=== PATIENT | male | born 1965 | race Caucasian/White ===

== ENCOUNTER 2021-07-29 16:24 | Emergency (ER) | payer MEDICARE ==
[2021-07-29 16:43] VITALS: TEMP 98.3
--- NOTE | 2021-07-29 17:37 | XR ---
EXAMINATION TYPE: XR ribs LT w pa chest xray DATE OF EXAM: 07/29/2021 COMPARISON: NONE HISTORY: Rib pain TECHNIQUE: 5 views FINDINGS: Heart and mediastinum are normal. Lungs are clear of infiltrate. There are multiple old rig ht-sided rib fractures. Left ribs appear intact. No pleural effusion or pneumothorax. IMPRESSION: Negative left rib exam. No fracture seen. No active cardiopulmonary disease.
[2021-07-29] MEDS ORDERED: diazePAM 2 MG TAB PO STA (17:58)
[2021-07-29] MEDS ORDERED: KETOROLAC 15 MG/ML 1 ML VIAL IM STA (17:59)
[2021-07-29] MEDS ORDERED: LIDOCAINE 5% PATCH TOPICAL STA (17:59)
--- NOTE | 2021-07-29 19:02 | ED ---
General Adult HPI - General Chief complaint: Fall Stated complaint: Lt Rib Pain/Fall Time Seen by Provider: 07/29/21 17:20 Source: patient, RN notes reviewed, old records reviewed Mode of arrival: wheelchair Limitations: no limitations - History of Present Illness Initial comments: Patient is a 55-year-old male with past medical history remarkable for h ypertension who presents emergency Department with concern for left-sided rib fracture. Was diagnosed on Sunday by his PCP with a left-sided rib fracture following a fall. Patient fell on Sunday, backwards landing on his left posterior mid ribs. Was seen at his PCPs office on Sunday and diagnosed with a possible rib fracture. However he was called today by the office, and radiology read it as no rib fracture. He presents today over concern for continued pain. Describes the pain as a tightening, cramping sensation located over the left paraspinal region. The uncertain what is causing it. Has been taking muscle relaxers with minimal improvement. Denies any anterior chest wall pain, abdominal pain, nausea, vomiting. No other injuries. No loss consciousness earlier this week. No other acute complaints at this time. Concern for possible bone injury or muscle injury. - Related Data Previous Rx's Medication Instructions Recorded HYDROcodone/APAP 5-325MG [Lincoln 1 tab PO Q6HR PRN 3 Days #12 tab 07/29/21 5-325] Lidocaine 5% Patch [Lidoderm 5% 1 patch TOPICAL DAILY PRN 7 Days 07/29/21 Patch] #7 patch Allergies Allergy/AdvReac Type Severity Reaction Status Date / Time No Known Allergies Allergy Verified 07/29/21 16:43 Review of Systems ROS Statement: Those systems with pertinent positive or pertinent negative responses have been documented in the HPI. Review of Systems: CONST: Denies fever EYES: Denies blurry vision ENT: Denies nasal congestion C/V: Denies Chest pain RESP: Denies shortness of breath GI: Denies abdominal pain : Denies dysuria SKIN: Denies rash. MSK: Endorses left sided back pain. NEURO: Denies headache ROS Other: All systems not noted in ROS Statement are negative. Past Medical History Past Medical History: Hypertension History of Any Multi-Drug Resistant Organisms: None Reported Past Surgical History: No Surgical Hx Reported Past Psychological History: No Psychological Hx Reported Smoking Status: Never smoker Past Alcohol Use History: None Reported Past Drug Use History: None Reported General Exam - General Exam Comments Initial Comments: General: In mild to moderate distress secondary to back pain. HEAD: Normal with no signs of head trauma. EYES: PERRLA, EOMI, conjunctiva normal, no discharge. ENT: Hearing grossly intact, normal oropharynx. RESPIRATORY: Clear breath sounds bilaterally. No wheezes, rales, or rhonchi. No hypoxia. No increased work of breathing. C/V: Regular rate and rhythm. S1 and S2 auscultated, no edema, peripheral pulses 2+ and intact throughout ABD: Abd is soft, nontender, nondistended EXT: Reduced range of motion of the trunk secondary to left-sided back pain. No obvious injuries or extremity injury. No midline cervical spine tenderness palpation. No midline lumbar spine tenderness palpation. Mild mid thoracic spine tenderness to palpation. No obvious step-offs or deformities. Also includes paraspinal muscle as well as point tenderness over the posterior rib midway through the thoracic spine. All located on the left side. No radiation of the pain. No obvious deformities appreciated. SKIN: No rashes or lesions observed on exposed skin. NEURO: Alert and oriented 4. No focal deficits. Limitations: no limitations Course Vital Signs 07/29/21 07/29/21 07/29/21 16:40 17:43 19:00 Temperature 98.3 F Pulse Rate 109 H 94 91 Respiratory 18 18 16 Rate Blood Pressure 162/93 161/97 155/88 O2 Sat by Pulse 98 97 97 Oximetry Medical Decision Making - Medical Decision Making Abdomen the patient's presentation and physical exam, I'm concerned for acute bony traumatic injury the patient's posterior left ribs and back. Appears to be mostly over the rib and paraspinal muscles but mild tenderness palpation of the midline thoracic spine. Rib x-ray and chest x-ray were obtained by triage which showed no acute process. I did discuss with the patient the findings, and recommended we obtain a chest CT without contrast to evaluate for thoracic spine as well as ribs. He was in agreement this plan. This is due to his severe pain and decreased mobility because of that. He will be administered by mouth Valium, IM Toradol, as well as a lidocaine patch for pain control. He was in agreement this plan. Patient's CT chest revealed multiple acute nondisplaced posterior left rib fractures with adjacent pleural thickening and mild subsegmental atelectasis. I discussed the findings with the patient. Pain is somewhat improved at this time. He will be given a Lincoln 5. We discussed at length pain control as well as incentive spirometer use which will provide be provided with. He is not meet inpatient criteria at this time and he expressed understanding. Vital signs remained within normal limits at this time. He'll be discharged home with close follow-up. Work note will be provided. He has a follow-up appointment with his PCP next week. He'll be given a prescription for lidocaine patches as well as Lincoln 5. He completed the opiate form. Patient was therefore discharged home in fair condition. He'll continue to use muscle relaxers at home as needed. I will provide the patient with a prescription for Lincoln 5, lidocaine patch. I instructed the patient to follow up with their PCP in the next 3 days. I explained that the patient should return to the emergency department if they experience any worsening symptoms. Strict return precautions were discussed with the patient. The patient expressed understanding of these instructions. I answered all questions that the patient had. The patient was discharged home in fair condition with their prescriptions and follow up information. Disposition Clinical Impression: Ribs, multiple fractures, Fall Disposition: HOME SELF-CARE Condition: Fair Instructions (If sedation given, give patient instructions): How to Use an Incentive Spirometer (ED), Rib Fracture (ED), Fall Prevention for Older Adults (ED) Prescriptions: Lidocaine 5% Patch [Lidoderm 5% Patch] 1 patch TOPICAL DAILY PRN 7 Days #7 patch PRN Reason: Pain HYDROcodone/APAP 5-325MG [Lincoln 5-325] 1 tab PO Q6HR PRN 3 Days #12 tab PRN Reason: Pain Is patient prescribed a controlled substance at d/c from ED?: Yes When asked, does pt state using other controlled substances?: No If prescribed controlled substance>3 days was MAPS reviewed?: Prescribed <3 Days If opioid is for acute pain is fill amount 7 days or less?: Yes If Rx opioid, was Start Talking consent form obtained?: Yes Referrals: Shaquille Bianchi MD [Primary Care Provider] - 1-2 days Time of Disposition: 19:25
--- NOTE | 2021-07-29 19:07 | CT ---
EXAMINATION TYPE: CT chest wo con DATE OF EXAM: 07/29/2021 COMPARISON: None HISTORY: Fall in shower, back pain, LT rib pain. CT DLP: 271.5 mGycm Automated exposure control for dose reduction was used. Images obtained from the thoracic inlet to the diaphragm with no contrast. The lungs are clear of consolidation. No pleural effusion or pneumothorax. There is minimal subsegmen brooks atelectasis at the posterior lung bases. There is pleural thickening left posterior lung base. There are nondisplaced fractures of the posterior left eighth and ninth and 10th ribs and the 11th ri b. The shoulder joints are poorly visualized and appear intact. Mediastinum is normal. There are no hilar masses. Thoracic aorta is intact. IMPRESSION: Multiple acute nondisplaced posterior left rib fractures. Mild pleural thickening adjacent to the fra ctures. Mild subsegmental atelectasis.
[2021-07-29 19:23] VITALS: BP 155/88; PULSE 91; RESP 16
[2021-07-29] MEDS ORDERED: HYDROcodone/APAP 5-325MG 1 EACH TAB PO STA (19:44)
== END 2021-07-29 19:50 | disposition home or self-care (01) ==
LOC: EC 16:24
DX: S22.42XA Multiple fractures of ribs, left side, initial encounter for closed fracture (principal); I10 Essential (primary) hypertension; W18.30XA Fall on same level, unspecified, initial encounter
CPT/HCPCS: 71101; 71250; 99284; 96372; J1885

== ENCOUNTER → 2021-09-02 | Outpatient (CLI) | payer MEDICARE ==
[~2021-09-02] MED LIST: BEBTELOVIMAB (EUA) 175 MG/2 ML VIAL IV NR; SODIUM CHLORIDE 0.9% 500 ML 500 ML in EMPTY BAG 1 BAG IV PRN
[2021-09-02 12:37] VITALS: RESP 16; TEMP 98.1
[2021-09-02 13:10] VITALS: BP 126/86; PULSE 99
== END ==
LOC: PROCWHC3 12:12
PROVIDERS: ATTEND Nurse Practitioner Adult Health
DX: U07.1 COVID-19 (principal); E11.9 Type 2 diabetes mellitus without complications; I10 Essential (primary) hypertension
CPT/HCPCS: Q0222; M0222